=== PATIENT | female | born 1935 | race Caucasian/White ===

== ENCOUNTER → 2020-05-02 | Outpatient (CLI) | payer MEDICARE, OTHER ==
[2020-05-02 11:39] LABS: ALBUMIN 3.8 g/dL (3.4-5.0); CALCIUM 9.2 mg/dL (8.5-10.1); GFR 52.8; POTASSIUM 4.1 mmol/L (3.5-5.1); TOTAL BILIRUBIN 0.6 mg/dL (0.2-1.0); TOTAL PROTEIN 7.5 g/dL (6.4-8.2)
== END ==
LOC: LAB 10:54
PROVIDERS: ATTEND Internal Medicine Interventional Cardiology
DX: E78.5 Hyperlipidemia, unspecified (principal); I10 Essential (primary) hypertension
CPT/HCPCS: 36415; 80053; 80061

== ENCOUNTER 2020-05-18 06:48 | Emergency (ER) | payer MEDICARE, OTHER ==
[~2020-05-18] VITALS: Ht 149.9 cm; Wt 55.0 kg
--- NOTE | 2020-05-18 07:17 | PHYS DOC ---
Past History Past Medical History: Diabetes, Hypertension, Hypothyroid Adult General Chief Complaint Chief Complaint: WEAKNESS/GENERALIZED HPI HPI Patient is a 84F with a past medical history of CAD, hypertension, hyperlipidemia, diabetes, hypothyroid now presents emergency department after an episode of right hand weakness. Patient states that yesterday during the day approximately 1 PM started having tingling in her hand and then had inability to close her hand. Patient states this continued until approximately 130 this morning. States that her symptoms are improved but now feels generally weak. Denies any vision changes, headache, nausea, vomiting, lower extremity weakness, dizziness or imbalance Review of Systems Review of Systems Constitutional: Denies fever or chills [] Eyes: Denies change in visual acuity, redness, or eye pain [] HENT: Denies nasal congestion or sore throat [] Respiratory: Denies cough or shortness of breath [] Cardiovascular: No additional information not addressed in HPI [] GI: Denies abdominal pain, nausea, vomiting, bloody stools or diarrhea [] : Denies dysuria or hematuria [] Musculoskeletal: Denies back pain or joint pain [] Integument: Denies rash or skin lesions [] Neurologic: Denies headache, focal weakness or sensory changes [] Endocrine: Denies polyuria or polydipsia [] All other systems were reviewed and found to be within normal limits, except as documented in this note. Allergies Allergies Allergies Coded Allergies Type Severity Reaction Last Updated Verified No Known Drug Allergies 05/18/20 No Physical Exam Physical Exam Constitutional: Well developed, well nourished, no acute distress, non-toxic ap pearance. [] HENT: Normocephalic, atraumatic, bilateral external ears normal, oropharynx moist, no oral exudates, nose normal. [] Eyes: PERRLA, EOMI, conjunctiva normal, no discharge. [] Neck: Normal range of motion, no tenderness, supple, no stridor. [] Cardiovascular:Heart rate regular rhythm, no murmur [] Lungs & Thorax: Bilateral breath sounds clear to auscultation [] Abdomen: Bowel sounds normal, soft, no tenderness, no masses, no pulsatile masses. [] Skin: Warm, dry, no erythema, no rash. [] Back: No tenderness, no CVA tenderness. [] Extremities: No tenderness, no cyanosis, no clubbing, ROM intact, no edema. [] Neurologic: Alert and oriented X 3, normal motor function, normal sensory function, no focal deficits noted. [] Psychologic: Affect normal, judgement normal, mood normal. [] Radiology/Procedures Radiology/Procedures CT HEAD INDICATION: Right-sided weakness COMPARISON: None Available. Exposure: One or more of the following individualized dose reduction techniques were utilized for this examination: 1. Automated exposure control 2. Adjustment of the mA and/or kV according to patient size 3. Use of iterative reconstruction technique TECHNIQUE: 5 mm contiguous axial images were obtained from the skull base to the vertex in both bone and soft tissue algorithm. FINDINGS: No abnormal attenuation within the brain parenchyma. No evidence of acute intracranial hemorrhage. No extra-axial fluid collections. No mass effect or midline shift. Ventricular size is appropriate. Basal cisterns are patent. No fractures identified.Combs-white differentiation is preserved.Globes and orbits are within normal limits. Paranasal sinuses and mastoid air cells are clear. IMPRESSION: No acute intracranial findings. Electronically signed by: Jesús Mallory MD (05/18/2020 7:44 AM) [id number] Heart Score Risk Factors: Risk Factors: DM, Current or recent (<one month) smoker, HTN, HLP, family history of CAD, obesity. Risk Scores: Risk Factors: DM, Current or recent (<one month) smoker, HTN, HLP, family history of CAD, obesity. Course & Med Decision Making Course & Med Decision Making Pertinent Labs and Imaging studies reviewed. (See chart for details) 84F presenting after an episode of right-sided hand weakness. All symptoms resolved at this point. However given the patient's age and her comorbidities she is at high risk for acute CVA or other significant vascular abnormality. At this time will obtain labs and CT of the head. Anticipate the patient will need a minimum of a CTA but will likely need neurology evaluation and MRI. 08:18 -labs and CT scan without any significant findings. I discussed the case with Dr. Cartagena agrees that since patient has higher risk for progression to CVA. At this time will admit to hospital service to undergo TIA work-up with a CT angiogram and further monitoring Dragon Disclaimer Dragon Disclaimer This electronic medical record was generated, in whole or in part, using a voice recognition dictation system. Departure Departure: Impression: Primary Impression: TIA (transient ischemic attack) Referrals: SERINA SERRANO MD (PCP) EBTO SAWYER MD May 18, 2020 07:17
[2020-05-18 07:41] LABS: BASO # 0.1 x10^3/uL (0.0-0.2); BASO % 1 % (0-3); EOS # 0.4 x10^3/uL (0.0-0.7); EOS % 7 % (0-3); HEMATOCRIT 36.5 % (36.0-47.0); HEMOGLOBIN 12.1 g/dL (12.0-15.5); LYMPH # 1.5 x10^3/uL (1.0-4.8); LYMPH % 25 % (24-48); MEAN CORPUSCULAR HEMOGLOBIN 31 pg (25-35); MEAN CORPUSCULAR HGB CONC 33 g/dL (31-37); MEAN CORPUSCULAR VOLUME 94 fL (79-100); MONO # 0.9 x10^3/uL (0.0-1.1); MONO % 15 % (0-9); NEUT # 3.2 x10^3uL (1.8-7.7); NEUT % 52 % (31-73); PLATELET COUNT 144 x10^3/uL (140-400); RED BLOOD COUNT 3.89 x10^6/uL (3.50-5.40); RED CELL DISTRIBUTION WIDTH 13.7 % (11.5-14.5)
--- NOTE | 2020-05-18 07:46 | RAD ---
CT HEAD INDICATION: Right-sided weakness COMPARISON: None Available. Exposure: One or more of the following individualized dose reduction techniques were utilized for thi s examination: 1. Automated exposure control 2. Adjustment of the mA and/or kV according to patient size 3. Use of iterative reconstruction technique TECHNIQUE: 5 mm contiguous axial images were obtained from the skull base to the vertex in both bone and soft tissue algorithm. FINDINGS: No abnormal attenuation within the brain parenchyma. No evidence of acute intracranial hemorrhage. No extra-axial fluid collections. No mass effect or midline shift. Ventricular size is appropriate. Basal cisterns are patent. No fractures identified.Combs-white differentiation is preserved.Globes and orbits are within normal l imits. Paranasal sinuses and mastoid air cells are clear. IMPRESSION: No acute intracranial findings. Electronically signed by: Jesús Mallory MD (05/18/2020 7:44 AM) [id number]
[2020-05-18 07:53] LABS: CALCIUM 8.8 mg/dL (8.5-10.1); CREATININE 0.9 mg/dL (0.6-1.0); GFR 59.7; POTASSIUM 3.6 mmol/L (3.5-5.1)
[2020-05-18 07:58] LABS: ALBUMIN 3.6 g/dL (3.4-5.0); ALBUMIN/GLOBULIN RATIO 1.2 (1.0-1.7); TOTAL BILIRUBIN 0.5 mg/dL (0.2-1.0); TOTAL PROTEIN 6.5 g/dL (6.4-8.2)
[2020-05-18] MEDS ORDERED: AMLO-187 PO (08:21)
[2020-05-18] MEDS ORDERED: ASPI-889 PO (08:22)
[2020-05-18] MEDS ORDERED: ATORVASTATIN CA80 MG PO (08:23)
[2020-05-18] MEDS ORDERED: CLOP75TA57 PO (08:23)
[2020-05-18] MEDS ORDERED: UBID100T5 PO (08:26)
[2020-05-18] MEDS ORDERED: IOHEXOL 350 MG/ML 100 ML VIAL. IV ONE (08:45)
--- NOTE | 2020-05-18 09:43 | RAD ---
CT angiogram head and neck with contrast: Reason for examination: Right-sided weakness. Helical images were obtained through the head and neck with intravenous administration of 98 cc Omnip aque 350 using angiographic protocol. 3-D MIPS reconstruction was performed in sagittal and coronal p lanes. Exposure: One or more of the following individualized dose reduction techniques were utilized for thi s examination: 1. Automated exposure control 2. Adjustment of the mA and/or kV according to patient size 3. Use of iterative reconstruction technique. Ventricular systems are prominent but symmetric and consistent with patient's advanced age and genera lized cerebral atrophy. No acute infarct, mass or edema is not seen. No abnormalities of seen at the orbits. The paranasal sinuses and mastoid air cells are clear. The intracranial carotid arteries are patent but shows some plaque in the region of the cavernous car otid artery with some mild stenosis bilaterally. There is normal bifurcation into their respective an terior and middle cerebral arteries with no stenosis or occlusions evident. The posterior communicati ng arteries are patent. The vertebral arteries and basilar artery are patent with no significant sten osis evident intracranially. There is normal blood flow to the posterior cerebral and superior cerebe llar arteries and posterior inferior cerebellar arteries bilaterally. No aneurysms or arteriovenous m alformations are seen. Dural sinuses and cerebral veins appear to be patent. No abnormalities of seen at the parotid or submandibular glands. Muscular bundles in the neck are sym metric. The vallecula and piriform sinuses are symmetric. No abnormality seen at the vocal cords. The trachea and visualized portion of the esophagus show no abnormalities. Visualized lung bermudez are cl ear. There are degenerative changes in the cervical spine. The thoracic aorta shows no focal abnormality. The heart size appears be normal no pericardial effusi on. No pulmonary embolus is evident. There is normal origin of the right brachiocephalic artery, left common carotid artery and left subcl hosea arteries from the aortic arch. The vertebral arteries arise from their respective subclavian ar teries and are patent to the basilar artery with no stenoses. The common carotid arteries, internal c arotid arteries and external carotid arteries bilaterally show no stenosis or occlusions. IMPRESSION: Calcified plaque in the intracranial carotid arteries with mild stenosis bilaterally. No other significant vascular abnormality seen in the head or neck. Cerebral atrophy but no acute intracranial abnormality evident. Electronically signed by: Vielka Cash MD (05/18/2020 9:40 AM) [id number]
[2020-05-18 10:15] VITALS: BP 125/56
--- NOTE | 2020-05-19 10:00 | EKG ---
[address] [address] Test Date: 2020-05-18 Test Time: 07:14:31 Pat Name: JALEESA RAJAN Department: Room: Gender: F Access Control Specialist: MANJULA : 1935 Requested By: BETO SAWYER Order Number: [id number] Reading MD: Measurements Intervals [place] Rate: 72 P: 40 CT: 186 QRS: 31 QRSD: 96 T: 41 QT: 402 QTc: 442 Interpretive Statements SINUS RHYTHM NO SPECIFIC ECG ABNORMALITIES RI6.02 No previous ECG available for comparison
== END 2020-05-18 11:38 | disposition left against medical advice (07) ==
LOC: ER 06:48
DX: G45.9 Transient cerebral ischemic attack, unspecified (principal); I25.10 Atherosclerotic heart disease of native coronary artery without angina pectoris; I10 Essential (primary) hypertension; E78.5 Hyperlipidemia, unspecified; E11.9 Type 2 diabetes mellitus without complications; E03.9 Hypothyroidism, unspecified
CPT/HCPCS: 36415; 70450; 70496; 70498; 80053; 83605; 84484; 85025; 93005; 99285; Q9967

== ENCOUNTER 2020-11-30 21:12 | Emergency (ER) | payer MEDICARE, OTHER ==
[~2020-11-30] VITALS: Ht 149.9 cm; Wt 54.0 kg
[~2020-11-30 21:12] MED LIST: AMLO-187 PO; ASPI-889 PO; ATORVASTATIN CA80 MG PO; CLOP75TA57 PO; UBID100T5 PO
--- NOTE | 2020-11-30 21:35 | PHYS DOC ---
Past History Past Medical History: Arthritis, Diabetes, Hypertension, Hypothyroid Past Surgical History: , Other Additional Past Surgical Histo: Coronary stent for 95% blockage Alcohol Use: None General Adult EDM: Chief Complaint: Neck Pain HPI: HPI: ".. I ve been having this neck crick.. been going on a while.. I did see the chiropractor... But it does not seem to be any better... "( Pt. ) " She has seems a little more confused.. so we thought she should be checked out tonight',,, ( Son) Patient is a 85 year old female who presents with above hx and of neck, back pain x 1 to weeks. Worse the last 72 hrs. No hx fever or chills. Pt. denies any trauma. Patient concerned because of increased discomfort. Does not have history of past episodes of arthritis flares. Patient localizes pain on the paracervical area cleared with down to T7. Does have obvious muscle spasms more on right trapezius. Distal neurovascularly grossly intact. DTRs +2 patella and brachial. Patient does have some mild kyphosis and scoliosis of the upper neck and back. Patient denies any history of fever or chills. No history of cancer. No history of recent travel. No history of severe ill contacts. No history immunosuppression. Patient normally follows with Dr. Serrano. Review of Systems: Review of Systems: Constitutional: Denies fever or chills Eyes: Denies change in visual acuity HENT: Denies nasal congestion or sore throat Respiratory: Denies cough or shortness of breath Cardiovascular: Denies chest pain or edema GI: Denies abdominal pain, nausea, vomiting, bloody stools or diarrhea : Denies dysuria Musculoskeletal: Complains of neck and back pain joint pain Integument: Denies rash Neurologic: Denies headache, focal weakness or sensory changes Endocrine: Denies polyuria or polydipsia Lymphatic: Denies swollen glands Psychiatric: Denies depression or anxiety Family History: Family History: Noncontributory to presentation Current Medications: Current Meds: See nursing for home meds Allergies: Allergies: Allergies Coded Allergies Type Severity Reaction Last Updated Verified No Known Drug Allergies 05/18/20 No Physical Exam: PE: Constitutional: Moderate acute distress, non-toxic appearance. [] HENT: Normocephalic, atraumatic, bilateral external ears normal, oropharynx moist, no oral exudates, nose normal. [] Eyes: PERRLA, EOMI, conjunctiva normal, no discharge. [] Neck: Normal range of motion, no tenderness, supple, no stridor. [] Cardiovascular: Tachycardia heart rate regular rhythm, no murmur, PMI to left Lungs & Thorax: Bilateral breath sounds equal apex on auscultation [] Abdomen: Bowel sounds normal, soft, no tenderness, no masses, no pulsatile masses. Mild distention. Old surgery scar Skin: Warm, dry, no erythema, no rash. Poor turgor Back: Cervical and upper back tenderness, no CVA tenderness. [] Mild kyphosis and scoliosis Extremities: No tenderness, no cyanosis, no clubbing, ROM intact, no edema. Arthritic changes. Has a bulge on left ankle. (Patient states after talking bump-advised that does not give her any problem so she is never had it looked at ..people always ask about it) Neurologic: Alert and oriented X 3, normal motor function, normal sensory function, no focal deficits noted. [] Very hard of hearing. DTRs +2 patella and brachial. Section Chief equal. No drift. Does have slightly shuffling gait. Psychologic: Affect anxious, judgement normal, mood normal. [] EKG: EKG: My interpretation EKG shows a sinus rhythm at 98 bpm. Nonspecific T wave and ST changes in lateral leads. Possible ventricular strain. Abnormal EKG. No findings of acute STEMI however contralateral changes. [] Radiology/Procedures: Radiology/Procedures: [[address] [address] IMAGING REPORT Signed PATIENT: JALEESA RAJAN ACCOUNT: [id number] : 1935 LOCATION: ER AGE: 85 SEX: F EXAM STATUS: REG ER ORD. PHYSICIAN: DAYANA CARRILLO MD REASON: Alter Mental, neck pain> PROCEDURE: CT HEAD AND CERVICAL SPINE WO INDICATION: Reason: Alter Mental, neck pain> / Spl. Instructions: / History: COMPARISON: CT head April 2020 TECHNIQUE: Axial CT images obtained through the head and cervical spine without intravenous contrast. Coronal and sagittal reformats processed of cervical spine. One or more of the following individualized dose reduction techniques were utilized for this examination: 1. Automated exposure control; 2. Adjustment of the mA and/or kV according to patient size; 3. Use of iterative reconstruction technique. FINDINGS: Head: No intracranial hemorrhage. No midline shift. Basal cisterns patents. Ventricles and sulci are globally prominent which can be seen with age-related volume loss Scattered regions of low density of white matter. Cervical: There is some pannus formation at C2 level. Degenerative changes throughout the cervical spine with osteophyte formation at vertebral body endplates as well as uncovertebral and facet hypertrophy. This contributes to multilevel central canal and neural foraminal stenosis. No acute fracture or dislocation. IMPRESSION: * No acute intracranial hemorrhage. Regions of low density within white matter. Nonspecific but can be seen with chronic small vessel ischemic disease. * No acute fracture or dislocation of the cervical spine. Degenerative changes are seen. Electronically signed by: Yusuf Lofton MD (11/30/2020 11:39 PM) DESKTOP- [id number] DICTATED AND SIGNED BY: YUSUF LOFTON MD DATE: 11/30/202330 CC: SERINA SERRANO MD; DAYANA CARRILLO MD ~[facility] 0 ][place] [address] IMAGING REPORT Signed PATIENT: JALEESA RAJAN ACCOUNT: [id number] : 1935 LOCATION: ER AGE: 85 SEX: F EXAM STATUS: REG ER ORD. PHYSICIAN: DAYANA CARRILLO MD REASON: Alter Mental, neck pain>, UPPER BACK PAIN PROCEDURE: CT THORACIC SPINE WO CONTRAST INDICATION: Reason: Alter Mental, neck pain>, UPPER BACK PAIN / Spl. Instructions: / History: . COMPARISON: None. TECHNIQUE: Axial CT images obtained through the thoracic spine. One or more of the following individualized dose reduction techniques were utilized for this examination: 1. Automated exposure control; 2. Adjustment of the mA and/or kV according to patient size; 3. Use of iterative reconstruction technique. FINDINGS: Sclerotic curvature of the thoracic spine. Degenerative changes are seen with patient at the vertebral body endplates as well as disc protrusions. Osseous demineralization. Schmorl's node formation at multiple levels. No evidence of dislocation. Calcific atherosclerosis. 3 mm nodule at partially visualized right lung. IMPRESSION: * Scoliotic curvature the spine with degenerative changes without a definite acute fracture line seen. * Calcific atherosclerosis. * 3 mm right lung nodule Electronically signed by: Yusuf Lofton MD (11/30/2020 11:45 PM) DESKTOP- [id number] DICTATED AND SIGNED BY: YUSUF LOFTON MD DATE: 11/30/202338 CC: SERINA SERRANO MD; DAYANA CARRILLO MD ~[facility] [address] [place] [address] IMAGING REPORT Signed PATIENT: JALEESA RAJAN ACCOUNT: [id number] : 1935 LOCATION: ER AGE: 85 SEX: F EXAM STATUS: REG ER ORD. PHYSICIAN: DAYANA CARRILLO MD REASON: pain PROCEDURE: PORTABLE CHEST 1V INDICATION: Reason: pain in the chest/ Spl. Instructions: / History: COMPARISON: None. FINDINGS: Single view of chest obtained. No focal airspace consolidation. Linear opacity bilateral lung base could be from atelectasis or scarring. Cardiac silhouette unremarkable. IMPRESSION: * Linear opacities at lung bases could be from atelectasis or scarring Electronically signed by: Yusuf Lofton MD (11/30/2020 11:28 PM) DESKTOP- [id number] DICTATED AND SIGNED BY: YUSUF LOFTON MD DATE: 11/30/202326 CC: SERINA SERRANO MD; DAYANA CARRILLO MD ~[facility] 0 Heart Score: C/O Chest Pain: No HEART Score for Chest Pain: HEART Score for Chest Pain Response (Comments) Value History Moderately Suspicious 1 ECG Nonspecific Repolarizatio 1 Age > 65 2 Risk Factors 1 or 2 Risk Factors 1 Troponin < Normal Limit 0 Total 5 Risk Factors: Risk Factors: DM, Current or recent (<one month) smoker, HTN, HLP, family history of CAD, obesity. Risk Scores: Score 0 - 3: 2.5% MACE over next 6 weeks - Discharge Home Score 4 - 6: 20.3% MACE over next 6 weeks - Admit for Clinical Observation Score 7 - 10: 72.7% MACE over next 6 weeks - Early Invasive Strategies Course & Med Decision Making: Course & Med Decision Making Pertinent Labs and Imaging studies reviewed. (See chart for details) No acute surgical process appreciated on cervical spine or thoracic spine. Patient take Tylenol and ibuprofen for pain. Continue gentle massage. Avoid chiropractic manipulations. For marked pain may take Percocet up to 4 times a day advised this may cause increased confusion and constipation. Patient to take Cipro 500 mg twice a day for 7 days for urinary tract infection. Push vitamin C drinks. Follow-up cultures. Follow-up primary care. Return if any concerns. Impression: 1. History of degenerative joint changes 2. Cervical neuropathy 3. Diabetes glucose 152 4. Mild leukocytosis 12.8 5. Urinary tract infection 6. Mild elevation CRP 47.5 [] Dragon Disclaimer: Draglamberto Disclaimer: This electronic medical record was generated, in whole or in part, using a voice recognition dictation system. Departure Departure: Referrals: SERINA SERRANO MD (PCP) Scripts Oxycodone HCl/Acetaminophen (Percocet 5-325 mg Tablet) 1 Each Tablet 1 TAB PO PRN QID PRN for PAIN MDD 4 Tablet(s) for 30 Days, #30 TAB 0 Refills Prov: DAYANA CARRILLO MD 12/01/20 Ciprofloxacin (CIPRO) 500 Mg/5 Ml [place]..rec 500 MG PO BID for UTI for 5 Days, MISC Prov: DAYANA CARRILLO MD 12/01/20 [place] Disclaimer This chart was dictated in whole or in part using Voice Recognition software in a busy, high-work load, and often noisy Emergency Department environment. It may contain unintended and wholly unrecognized errors or omissions. DAYANA CARRILLO MD Nov 30, 2020 21:35
[2020-11-30 22:07] VITALS: BP 173/91
[2020-11-30] MEDS ORDERED: oxyCODONE/APAP 5/325 1 TAB TABLET PO PRN (22:45)
[2020-11-30] MEDS ORDERED: IV RINGERS SOLUTION,LACTATED 1,000 ML IV SCH (22:45)
[2020-11-30] MEDS ORDERED: oxyCODONE/APAP 5/325 1 TAB TABLET PO ONE (22:45)
--- NOTE | 2020-11-30 23:31 | RAD ---
INDICATION: Reason: pain in the chest/ Spl. Instructions: / History: COMPARISON: None. FINDINGS: Single view of chest obtained. No focal airspace consolidation. Linear opacity bilateral lung base could be from atelectasis or scar ring. Cardiac silhouette unremarkable. IMPRESSION: * Linear opacities at lung bases could be from atelectasis or scarring Electronically signed by: Carlos Cervantes MD (11/30/2020 11:28 PM) [id number]
[2020-11-30 23:32] LABS: BASO % 0 % (0-3); EOS # 0.2 x10^3/uL (0.0-0.7); EOS % 1 % (0-3); HEMOGLOBIN 13.5 g/dL (12.0-15.5); LYMPH # 1.8 x10^3/uL (1.0-4.8); LYMPH % 14 % (24-48); MEAN CORPUSCULAR HEMOGLOBIN 32 pg (25-35); MEAN CORPUSCULAR HGB CONC 34 g/dL (31-37); MEAN CORPUSCULAR VOLUME 94 fL (79-100); MONO # 2.2 x10^3/uL (0.0-1.1); MONO % 17 % (0-9); NEUT # 8.7 x10^3uL (1.8-7.7); NEUT % 68 % (31-73); PLATELET COUNT 175 x10^3/uL (140-400); RED BLOOD COUNT 4.26 x10^6/uL (3.50-5.40); RED CELL DISTRIBUTION WIDTH 13.1 % (11.5-14.5); WHITE BLOOD COUNT 12.8 x10^3/uL (4.0-11.0)
--- NOTE | 2020-11-30 23:41 | RAD ---
INDICATION: Reason: Alter Mental, neck pain> / Spl. Instructions: / History: COMPARISON: CT head April 2020 TECHNIQUE: Axial CT images obtained through the head and cervical spine without intravenous contrast. Coronal a nd sagittal reformats processed of cervical spine. One or more of the following individualized dose reduction techniques were utilized for this examinat ion: 1. Automated exposure control; 2. Adjustment of the mA and/or kV according to patient size; 3 . Use of iterative reconstruction technique. FINDINGS: Head: No intracranial hemorrhage. No midline shift. Basal cisterns patents. Ventricles and sulci are globally prominent which can be seen with age-related volume loss Scattered regions of low density of white matter. Cervical: There is some pannus formation at C2 level. Degenerative changes throughout the cervical spine with osteophyte formation at vertebral body endpla [place] as well as uncovertebral and facet hypertrophy. This contributes to multilevel central canal and neural foraminal stenosis. No acute fracture or dislocation. IMPRESSION: * No acute intracranial hemorrhage. Regions of low density within white matter. Nonspecific but can be seen with chronic small vessel ischemic disease. * No acute fracture or dislocation of the cervical spine. Degenerative changes are seen. Electronically signed by: Carlos Cervantes MD (11/30/2020 11:39 PM) [id number]
[2020-11-30 23:43] LABS: CALCIUM 9.4 mg/dL (8.5-10.1); CREATININE 0.8 mg/dL (0.6-1.0); GFR 68.2; POTASSIUM 3.7 mmol/L (3.5-5.1)
--- NOTE | 2020-11-30 23:47 | RAD ---
INDICATION: Reason: Alter Mental, neck pain>, UPPER BACK PAIN / Spl. Instructions: / History: . COMPARISON: None. TECHNIQUE: Axial CT images obtained through the thoracic spine. One or more of the following individualized dose reduction techniques were utilized for this examinat ion: 1. Automated exposure control; 2. Adjustment of the mA and/or kV according to patient size; 3 . Use of iterative reconstruction technique. FINDINGS: Sclerotic curvature of the thoracic spine. Degenerative changes are seen with patient at the vertebral body endplates as well as disc protrusion s. Osseous demineralization. Schmorl's node formation at multiple levels. No evidence of dislocation. Calcific atherosclerosis. 3 mm nodule at partially visualized right lung. IMPRESSION: * Scoliotic curvature the spine with degenerative changes without a definite acute fracture line see n. * Calcific atherosclerosis. * 3 mm right lung nodule Electronically signed by: Carlos eCrvantes MD (11/30/2020 11:45 PM) [id number]
--- NOTE | 2020-11-30 23:47 | EKG ---
[address] [address] Test Date: 2020-11-30 Test Time: 23:15:55 Pat Name: JALEESA RAJAN Department: Room: Gender: F Claims Adjuster Supervisor: : 1935 Requested By: DAYANA CARRILLO Order Number: [id number] Reading MD: Measurements Intervals [place] Rate: 98 P: 32 [place]: 192 QRS: 6 QRSD: 96 T: 75 QT: 350 QTc: 449 Interpretive Statements SINUS RHYTHM ST & T ABNORMALITY, CONSIDER LATERAL ISCHEMIA OR LEFT VENTRICULAR STRAIN INFEROLATERAL ISCHEMIA OR LEFT VENTRICULAR STRAIN ABNORMAL ECG RI6.02 No previous ECG available for comparison
[2020-11-30 23:55] LABS: DIRECT BILIRUBIN 0.2 mg/dL (0.0-0.2); MAGNESIUM 1.7 mg/dL (1.8-2.4); TOTAL BILIRUBIN 0.9 mg/dL (0.2-1.0); TOTAL PROTEIN 8.1 g/dL (6.4-8.2)
[2020-12-01 00:50] LABS: BILIRUBIN,URINE NEG (NEG); CLARITY,URINE CLEAR; COLOR,URINE YELLOW; GLUCOSE,URINE NEG (NEG); NITRITE,URINE NEG (NEG); UROBILINOGEN,URINE 0.2 mg/dL (0.2 mg/dL)
[2020-12-01 00:52] LABS: BACTERIA,URINE MOD /HPF (0-FEW); SQUAMOUS EPITHELIAL CELL,UR FEW /LPF
[2020-12-01] MEDS ORDERED: CIPROFLOXACIN HCL 500 MG TABLET PO ONE (01:00)
[2020-12-01] MEDS ORDERED: OXYC-325 PO (01:04)
[2020-12-01] MEDS ORDERED: CIPR500S2 PO (01:04)
== END 2020-12-01 01:35 | disposition home or self-care (01) ==
LOC: ER 21:12
DX: G54.2 Cervical root disorders, not elsewhere classified (principal); E11.9 Type 2 diabetes mellitus without complications; D72.829 Elevated white blood cell count, unspecified; N39.0 Urinary tract infection, site not specified; R79.82 Elevated C-reactive protein (CRP); M19.90 Unspecified osteoarthritis, unspecified site; I10 Essential (primary) hypertension; E03.9 Hypothyroidism, unspecified; Z98.890 Other specified postprocedural states
CPT/HCPCS: 36415; 70450; 71045; 72125; 72128; 80048; 80076; 81001; 82550; 83735; 83880; 84443; 84484; 85025; 85651; 86140; 87086; 93005; 96360; 96361; 99285; J7120